=== PATIENT | female | born 2000 | race American Indian/Alaskan Native ===

== ENCOUNTER 2024-12-21 14:28 | Emergency (ER) | payer MEDICAID, SELFPAY ==
[2024-12-21 14:53] VITALS: BP 121/78; PULSE 85; RESP 18; TEMP 37.3; O2SAT 99; BMI 26.3
--- NOTE | 2024-12-21 15:47 | PD.EDRME ---
Rapid Medical Screening Exam RME Arrival date/time: 12/21/24 14:28 24-year-old female presents to the emergency department today requesting test patient reports she tested positive at home Patient reports no vaginal bleeding or pain Chief Complaint: General Adult/Misc Complain Time Seen by Provider: 12/21/24 14:34 Vital signs: Vital Signs Temperature 99.2 F 12/21/24 14:53 Pulse Rate 85 12/21/24 14:53 Respiratory Rate 18 12/21/24 14:53 Blood Pressure 121/78 12/21/24 14:53 Pulse Oximetry (%) 99 12/21/24 14:53 Oxygen Delivery Method Room Air 12/21/24 14:53
[2024-12-21 16:47] LABS: Beta HCG,Quantitative 89120 mIU/mL (<5.0)
== END 2024-12-21 15:45 | disposition left against medical advice (07) ==
LOC: SERX 15:39
PROVIDERS: Nurse Practitioner Primary Care; Emergency Provider Family Medicine
DX: Z32.00 Encounter for pregnancy test, result unknown (principal); Z53.21 Procedure and treatment not carried out due to patient leaving prior to being seen by health care provider
CPT/HCPCS: 36415; 84702; 99282